=== PATIENT | male | born 1960 | race Asian ===

== ENCOUNTER → 2017-01-08 | Outpatient (CLI) | payer MEDICAID ==
[~2017-01-08] MED LIST: GADOBUTROL 10 MMOL/10 ML VIAL ONE
== END | disposition home or self-care (01) ==
LOC: CFH 10:26
PROVIDERS: ATTEND Nurse Practitioner
DX: E22.1 Hyperprolactinemia (principal); I67.82 Cerebral ischemia; R90.82 White matter disease, unspecified; L02.211 Cutaneous abscess of abdominal wall; E23.7 Disorder of pituitary gland, unspecified; G58.8 Other specified mononeuropathies; J32.3 Chronic sphenoidal sinusitis; G93.89 Other specified disorders of brain; K94.19 Other complications of enterostomy; E11.49 Type 2 diabetes mellitus with other diabetic neurological complication
CPT/HCPCS: 70553; A9585

== ENCOUNTER → 2017-04-07 | Outpatient (CLI) | payer MEDICAID | END | disposition home or self-care (01) | LOC: CFH 08:21 | PROVIDERS: ATTEND Nurse Practitioner | DX: D44.3 Neoplasm of uncertain behavior of pituitary gland (principal) | CPT/HCPCS: 70553; 82565; A9585 ==

== ENCOUNTER → 2017-06-16 | Outpatient (CLI) | payer MEDICAID | END | disposition home or self-care (01) | LOC: CFH 12:41 | PROVIDERS: ATTEND Nurse Practitioner | DX: D44.3 Neoplasm of uncertain behavior of pituitary gland (principal); E22.1 Hyperprolactinemia | CPT/HCPCS: 70553; A9585 ==

== ENCOUNTER → 2017-10-07 | Outpatient (CLI) | payer MEDICAID | LOC: CFH 14:38 | PROVIDERS: ATTEND Neurological Surgery | DX: D49.7 Neoplasm of unspecified behavior of endocrine glands and other parts of nervous system (principal); D49.6 Neoplasm of unspecified behavior of brain | CPT/HCPCS: 70553; A9585 ==

== ENCOUNTER → 2018-05-05 | Outpatient (CLI) | payer MEDICAID ==
[~2018-05-05] MED LIST changes: -GADOBUTROL 10 MMOL/10 ML VIAL ONE; +GADOBUTROL 7.5 MMOL/7.5 ML VIAL ONE
== END | disposition home or self-care (01) ==
LOC: CFH 11:40
PROVIDERS: ATTEND Neurological Surgery
DX: D49.7 Neoplasm of unspecified behavior of endocrine glands and other parts of nervous system (principal)
CPT/HCPCS: 70553; A9585